=== PATIENT | female | born 1950 | race Caucasian/White ===

== ENCOUNTER → 2020-06-25 | Day surgery (SDC) | payer MEDICAID ==
[~2020-06-25] VITALS: Ht 154.9 cm; Wt 79.5 kg
[~2020-06-25] MED LIST: ACETAMINOPHEN 325 MG TABLET PO ONE; EPINEPHrine 1:10,000 [1 MG/10 ML] SYRINGE ONE; FentaNYL CITRATE-PF 100 MCG/2 ML VIAL ONE; MIDAZOLAM HCL 5 MG/ML VIAL ONE; OXYGEN THERAPY IH SCH; SODIUM CHLORIDE 0.9% 1,000 ML IV ONE; SODIUM CHLORIDE 0.9% 1,000 ML ONE
== END | disposition home or self-care (01) ==
LOC: SURGERY 09:18
PROVIDERS: ATTEND Specialist
DX: K62.5 Hemorrhage of anus and rectum (principal); D12.5 Benign neoplasm of sigmoid colon; D12.3 Benign neoplasm of transverse colon; D12.4 Benign neoplasm of descending colon; K62.1 Rectal polyp; F17.210 Nicotine dependence, cigarettes, uncomplicated; Z98.890 Other specified postprocedural states
CPT/HCPCS: 45385; 87635; 88305; 99152; 99153; C1769; J0171; J2250; J3010; J7030